=== PATIENT | male | born 1975 | race Two or more races ===

== ENCOUNTER 2018-01-29 11:08 | Inpatient (IN) | payer MEDICAID, OTHER ==
[~2018-01-29] VITALS: Ht 160 cm; Wt 99.0 kg
[~2018-01-29 11:08] MED LIST: CEFAZOLIN 1,000 MG ONE; DEXAMETHASONE 4 MG/ML, 1ML ONE; ONDANSETRON 2MG/ML, 2ML ONE; SUCCINYLCHOLINE 20 MG/ML, 10ML ONE
[2018-01-29] MEDS ORDERED: SODIUM CHLORIDE 0.9% 1,000ML IVBOLUS ONE (12:00)
[2018-01-29] MEDS ORDERED: SODIUM CHLORIDE FLUSH 10ML SYR IVF ONE (12:00)
[2018-01-29] MEDS ORDERED: MORPHINE SULFATE 4 MG/ML, 1ML IVPush PRN ×4 (12:00→21:00)
[2018-01-29] MEDS ORDERED: ONDANSETRON 2MG/ML, 2ML IVPush ONE (12:00)
[2018-01-29 12:06] LABS: ALBUMIN 3.9 g/dL (3.4-5.0); ANION GAP 9 mmol/L (5-15); CALCIUM 8.8 mg/dL (8.5-10.1); CHLORIDE 107 mmol/L (98-107)
[2018-01-29 12:10] LABS: ALANINE AMINOTRANSFERASE 167 U/L (12-78); ALKALINE PHOSPHATASE 80 U/L (45-117); BASOPHILS # (AUTO) 0.03 x10^3/uL (0-0.1); BASOPHILS % (AUTO) 0 % (0-1); BILIRUBIN,TOTAL 1.2 mg/dL (0.2-1.0); CREATININE 1.27 mg/dL (0.7-1.3); EOSINOPHILS # (AUTO) 0.08 x10^3/uL (0-0.4); EOSINOPHILS % (AUTO) 1 % (1-7); LYMPHOCYTES # (AUTO) 2.47 x10^3/uL (1-3.4); LYMPHOCYTES % (AUTO) 33 % (22-44); MD NO; MEAN CORPUSCULAR HEMOGLOBIN 32.5 pg (27.5-34.5); MEAN CORPUSCULAR HGB CONC 34.6 g/dL (33.2-36.2); MEAN PLATELET VOLUME 8.8 fL (7.4-10.4); MONOCYTES # (AUTO) 0.86 x10^3/uL (0.2-0.8); MONOCYTES % (AUTO) 11 % (2-9); NEUTROPHILS # (AUTO) 4.14 x10^3/uL (1.8-6.8); NEUTROPHILS % (AUTO) 55 % (42-75); PLATELET COUNT 221 x10^3/uL (130-400); RED BLOOD COUNT 4.63 x10^6/uL (4.38-5.82); RED CELL DISTRIBUTION WIDTH 13.8 % (9.4-14.8); TOTAL PROTEIN 7.9 g/dL (6.4-8.2)
[2018-01-29] MEDS ORDERED: MORPHINE SULFATE 4 MG/ML, 1ML ONE (12:22)
[2018-01-29] MEDS ORDERED: ONDANSETRON 2MG/ML, 2ML ONE (12:22)
[2018-01-29] MEDS ORDERED: OMNIPAQUE 350 MG/ML, 100ML BOTTLE ONE (12:54)
[2018-01-29] MEDS ORDERED: SODIUM CHLORIDE 0.9% 1,000 ML IV ONE (13:45)
[2018-01-29] MEDS ORDERED: ONDANSETRON 2MG/ML, 2ML IVPush PRN ×2 (14:00→15:00)
[2018-01-29] MEDS ORDERED: SODIUM CHLORIDE FLUSH 10ML SYR IVF PRN (14:00)
[2018-01-29] MEDS ORDERED: LOSA100T6 PO (14:32)
[2018-01-29] MEDS ORDERED: HYDR12.53 PO (14:33)
[2018-01-29] MEDS ORDERED: HYDR50TA13 PO (14:34)
[2018-01-29 14:46] VITALS: BP 144/86
[2018-01-29] MEDS ORDERED: D5%-0.45NACL+KCL 20MEQ 1,000 ML IV SCH (15:00)
[2018-01-29] MEDS ORDERED: BUPIVACAINE/PF-EPI 0.5% 1:200K ONE (19:35)
[2018-01-29 19:36] VITALS: BP 139/88
[2018-01-29] MEDS ORDERED: BUPIVACAINE/PF-EPI 0.5% 1:200K IM ONE (19:47)
[2018-01-29] MEDS ORDERED: FENTANYL PF 250 MCG/5ML ONE (20:10)
[2018-01-29] MEDS ORDERED: MIDAZOLAM 1 MG/ML, 2ML ONE (20:10)
[2018-01-29] MEDS ORDERED: PROPOFOL 10 MG/ML, 20ML ONE (20:12)
[2018-01-29] MEDS ORDERED: ROCURONIUM 10MG/ML,5ML ONE (20:12)
[2018-01-29] MEDS ORDERED: ALBUTEROL SULFATE 2.5 MG/3 ML NPPB PRN (21:00)
[2018-01-29] MEDS ORDERED: LORazepam 2 MG/ML, 1ML IVPush PRN (21:00)
[2018-01-29] MEDS ORDERED: hydrALAzine 20 MG/ML, 1ML IV PRN ×2 (21:00→23:45)
[2018-01-29] MEDS ORDERED: LABETALOL 5MG/ML, 20ML IV PRN (21:00)
[2018-01-29] MEDS ORDERED: ONDANSETRON ODT 8 MG PO PRN (21:00)
[2018-01-29] MEDS ORDERED: MIDAZOLAM 1 MG/ML, 2ML IV PRN (21:00)
[2018-01-29] MEDS ORDERED: OXYcodone 5 MG/5 ML ORAL.SOL UDC PO PRN (21:00)
[2018-01-29] MEDS ORDERED: MEPERIDINE/PF 25MG/0.5ML IVPush PRN (21:00)
[2018-01-29] MEDS ORDERED: PROMETHAZINE 25 MG/ML, 1ML IV PRN (21:00)
[2018-01-29] MEDS ORDERED: ONDANSETRON 2MG/ML, 2ML IV PRN (21:00)
[2018-01-29] MEDS ORDERED: PROMETHAZINE 12.5 MG SUPP PR PRN (21:00)
[2018-01-29] MEDS ORDERED: OXYcodone 5 MG/5 ML ORAL.SOL UDC ONE (21:47)
[2018-01-29] MEDS: FENTANYL PF 100 MCG/2ML IV PRN ×2 (21:48→22:07)
[2018-01-29] MEDS ORDERED: FENTANYL PF 100 MCG/2ML ONE (21:49)
[2018-01-29] MEDS ORDERED: ACETAMINOPHEN 325 MG TABLET PO PRN (23:45)
[2018-01-29] MEDS ORDERED: ACETAMINOPHEN 650 MG SUPP PR PRN (23:45)
[2018-01-29 23:56] VITALS: BP 112/70
[2018-01-30] MEDS: HYDROcodone/APAP 5/325 TABLET PO PRN ×3 (01:48→12:00)
[2018-01-30 03:20] VITALS: BP 104/61
[2018-01-30] MEDS ORDERED: SODIUM CHLORIDE FLUSH 10ML SYR IVF SCH (09:00)
[2018-01-30 09:14] VITALS: BP 112/70
[2018-01-30] MEDS ORDERED: HYDR-3240 PO (09:48)
== END 2018-01-30 12:54 | disposition home or self-care (01) | DRG 353 ==
LOC: ED 13:34 → 4NOR 13:45 → DCLOUNGE 01-30 12:31
PROVIDERS: ADMIT Surgery; ATTEND Surgery
PROC: 0WQF0ZZ Repair Abdominal Wall, Open Approach (ICD-10-PCS; principal; 2018-01-29 20:30)
DX: K42.0 Umbilical hernia with obstruction, without gangrene (principal); K56.2 Volvulus; I10 Essential (primary) hypertension; J45.909 Unspecified asthma, uncomplicated; K76.0 Fatty (change of) liver, not elsewhere classified; Z88.8 Allergy status to other drugs, medicaments and biological substances
CPT/HCPCS: 36415; 74177; 80053; 85025; 96374; 96375; 99285; J0690; J1100; J2250; J2405; J2704; J3010; Q9967; J0330; J3480; J7030